=== PATIENT | female | born 1975 | race Caucasian/White ===

== ENCOUNTER 2017-08-30 19:18 | Emergency (ER) | payer OTHER ==
--- NOTE | 2017-08-30 20:54 | RAD ---
Indication: Dizziness. Comparison: No relevant prior exams available on the [facility] [place] for comparison. Technique: Upright AP 2043 hours Report: Clear lungs and pleural spaces. Negative for pneumothorax. The heart, pulmonary vasculature, and mediastinal contours are unremarkable. Unremarkable osseous structures and soft tissue contours. IMPRESSION: No evidence for acute intrathoracic disease.
[2017-08-30 21:04] LABS: Hematocrit 44 % (35-47); Hemoglobin 15.1 g/dl (12.0-16.0); Mean Corpuscular HGB Conc 35 g/dl (31-36); Mean Corpuscular Hemoglobin 31 pg (27-31); Mean Corpuscular Volume 89 fL (80-97); Mean Platelet Volume 9 um3 (7.4-10.4); Red Blood Count 4.89 10^6/ul (4.0-5.4); Red Cell Distribution Width 12 % (10.5-15); White Blood Count 7.9 10^3/ul (3.5-10.8)
[2017-08-30 21:18] LABS: ALT 11 U/L (7-52); AST 12 U/L (13-39); Albumin 4.3 g/dL (3.2-5.2); Alkaline Phosphatase 46 U/L (34-104); Anion Gap 7 mmol/L (2-11); BUN/Creatinine Ratio 18.8 (8-20); Blood Urea Nitrogen 12 mg/dL (6-24); CO2 Carbon Dioxide 24 mmol/L (22-32); Calcium 8.9 mg/dL (8.6-10.3); Chloride 106 mmol/L (101-111); Creatine Kinase 54 U/L (10-223); EGFR African American 130.2 (>60); EGFR Non-African American 101.3 (>60); Globulin 1.8 g/dL (2-4); Glucose 118 mg/dL (70-100); Potassium 3.3 mmol/L (3.5-5.0); Sodium 137 mmol/L (133-145); Total Protein 6.1 g/dL (6.4-8.9)
[2017-08-30 21:21] LABS: Alcohol < 10 mg/dL (<10)
[2017-08-30 21:36] LABS: TSH (Thyroid Stimulating Horm) 1.52 mcIU/mL (0.34-5.60)
[2017-08-30 21:57] LABS: Benzodiazepine Urine Screen None Detected (None Detect)
[2017-08-30 21:58] LABS: Urine Bilirubin Negative (Negative); Urine Glucose Negative (Negative); Urine Nitrite Negative (Negative)
[2017-08-30] MEDS ORDERED: Potassium Chlor TAB* 20 MEQ TAB.ER PO ONE (23:08)
[2017-08-31] MEDS ORDERED: Iohexol 350* (CONTRAST) 500 ML MDV IV ONE (00:26)
--- NOTE | 2017-08-31 01:37 | ED ---
Alice Jacobs Edward, scribed for Radha Garnica MD on 08/30/17 at 2057 . Dizziness - HPI Summary HPI Summary: 41 y/o female presents to the ED c/o sudden onset dizziness described as room spinning that lasted around 30 minutes while bending over her waist earlier today just before 18:00 after "cracking her back", which she does all the time but she has never had this dizziness afterwards. The pt had to lie down on her dining room floor. Pt c/o diaphoresis and weakness in the extremities during the near syncopal episode. Pt is unsure if she lost consciousness. The dizziness was aggravated by standing up. Associated sx: chronic L side neck pain aggravated with turning her head that became worse in the past few days and continues in the ED,worsened in ED by turning her head; nausea that resolved in 1 hr, elevated blood pressure, muscular twitch at the inside of the R knee starting a couple of days ago. Pt feels much better in the ED. Pt c/o [place] for the last 3 days. The [place] is waxing and waning from a 2-3 to a 5-6/10, aggravated with turning the head, located at the back of the base of the skull. Pt is noted HTN in the ED, no prior hx HTN. - History Of Current Complaint Chief Complaint: EDDizziness Stated Complaint: DIZZY/N/WEAKNESS Time Seen by Provider: 08/30/17 19:43 Hx Obtained From: Patient, Family/Breastfeeding Peer Counselor - is with pt in ED Last Known Well Date: 1800 today Onset/Duration: Resolved Timing: Minutes - Lasting 30 minutes Severity Initially: Severe Severity Currently: None Character: Room Spinning, Dizzy Aggravating Factor(s): Supine To Erect Alleviating Factor(s): Lying Down Associated Signs And Symptoms: Positive: Nausea, Diaphoresis, Other: - weakness in extremities, neck pain, [place] - Allergies/Home Medications Allergies/Adverse Reactions: Allergies Allergy/AdvReac Type Severity Reaction Status Date / Time Penicillins Allergy Unknown Verified 08/30/17 19:31 Reaction Details PMH/Surg Hx/FS Hx/Imm Hx 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 Aunt on father 's side - stroke - Social History Occupation: Employed Full-time - [employer] Lives: With Family Alcohol Use: None Hx Substance Use: No Substance Use Type: Reports: None Hx Tobacco Use: No Smoking Status (MU): Never Smoked Tobacco Review of Systems Positive: Skin Diaphoresis Eyes: Negative ENT: Negative Cardiovascular: Other - elevated BP Respiratory: Negative Positive: Nausea Genitourinary: Negative Positive: Myalgia - Neck pain, Other - muscular twitch at the inside of the R knee Skin: Negative Neurological: Other - Dizziness Positive: Headache, Weakness - in extremities Psychological: Normal All Other Systems Reviewed And Are Negative: Yes Physical Exam - Summary Physical Exam Summary: Appearance: Well-appearing, mild pain distress at base of left skull, Well- nourished; Pt turns head and lifts head off pillow during exam and while giving history without worsening dizziness. Left neck pain worse with turning her head. Skin: Warm, color reflects adequate perfusion Head: Normal Head/Face inspection. No sign of trauma. Eyes: Conjunctiva clear PERRL, EOMI, fundi: discs sharp and flat, no hemorrhage noted; no nystagmus ENT: Normal , TM's clear. Pharynx clear. Neck: Supple, no bruits, tender left post neck at base of skull. Respiratory: Lungs clear, Normal breath sounds, no respiratory distress Cardio: RRR, No murmur, pulses normal, brisk capillary refill Abdomen: soft, nontender, soft, no renal bruits, no pulsatile mass Bowel sounds: present Musculoskeletal: Strength Intact/ ROM intact; no edema; no calf tenderness Neuro: Muscle tone normal, facial symmetry, speech normal, A&Ox3, CN II-XII intact, Motor function 5/5, Sensation intact to pain and temperature, Gait WNL. Normal [id number]. Knee and ankle reflexes 2+ symmetric. Psychological: Normal Triage Information Reviewed: Yes Vital Signs On Initial Exam: Initial Vitals Temp Pulse Resp BP Pulse Ox 97.6 F 75 18 153/95 100 08/30/17 19:22 08/30/17 19:22 08/30/17 19:22 08/30/17 19:22 08/30/17 19:22 Vital Signs Reviewed: Yes - Leroy Coma Scale Coma Scale Total: 15 Diagnostics - Vital Signs Vital Signs Temp Pulse Resp BP Pulse Ox 08/30/17 19:22 97.6 F 75 18 153/95 100 - Laboratory Lab Results: Lab Results 08/30/17 08/30/17 08/30/17 Range/Units 20:54 20:54 20:54 WBC 7.9 (3.5-10.8) 10^3/ul RBC 4.89 (4.0-5.4) 10^6/ul Hgb 15.1 (12.0-16.0) g/dl Hct 44 (35-47) % MCV 89 (80-97) fL MCH 31 (27-31) pg MCHC 35 (31-36) g/dl RDW 12 (10.5-15) % Plt Count 176 (150-450) 10^3/ul MPV 9 (7.4-10.4) um3 Neut % (Auto) 75.3 (38-83) % Lymph % (Auto) 17.8 L (25-47) % [place]arrard % (Auto) 5.6 (1-9) % Eos % (Auto) 0.4 (0-6) % Baso % (Auto) 0.9 (0-2) % Absolute Neuts (auto) 6.0 (1.5-7.7) 10^3/ul Absolute Lymphs (auto) 1.4 (1.0-4.8) 10^3/ul Absolute Monos (auto) 0.4 (0-0.8) 10^3/ul Absolute Eos (auto) 0 (0-0.6) 10^3/ul Absolute Basos (auto) 0.1 (0-0.2) 10^3/ul Absolute Nucleated RBC 0.02 10^3/ul Nucleated RBC % 0.3 INR (Anticoag Therapy) (0.89-1.11) Sodium 137 (133-145) mmol/L Potassium 3.3 L (3.5-5.0) mmol/L Chloride 106 (101-111) mmol/L Carbon Dioxide 24 (22-32) mmol/L Anion Gap 7 (2-11) mmol/L BUN 12 (6-24) mg/dL Creatinine 0.64 (0.51-0.95) mg/dL Est GFR ( Amer) 130.2 (>60) Est GFR (Non-Af Amer) 101.3 (>60) BUN/Creatinine Ratio 18.8 (8-20) Glucose 118 H (70-100) mg/dL Lactic Acid (0.5-2.0) mmol/L Calcium 8.9 (8.6-10.3) mg/dL Magnesium 2.0 (1.9-2.7) mg/dL Total Bilirubin 0.60 (0.2-1.0) mg/dL AST 12 L (13-39) U/L ALT 11 (7-52) U/L Alkaline Phosphatase 46 (34-104) U/L Total Creatine Kinase 54 (10-223) U/L Troponin I 0.00 (<0.04) ng/mL B-Natriuretic Peptide 22 ( - 100) pg/mL Total Protein 6.1 L (6.4-8.9) g/dL Albumin 4.3 (3.2-5.2) g/dL Globulin 1.8 L (2-4) g/dL Albumin/Globulin Ratio 2.4 (1-3) TSH 1.52 (0.34-5.60) mcIU/mL Beta HCG, Quant < 0.60 mIU/mL Urine Color Urine Appearance Urine pH (5-9) Ur Specific [place] (1.010-1.030) Urine Protein (Negative) Urine Ketones (Negative) Urine Blood (Negative) Urine Nitrate (Negative) Urine Bilirubin (Negative) Urine Urobilinogen (Negative) Ur Leukocyte Esterase (Negative) Urine Glucose (Negative) Urine Opiates Screen (None Detect) Ur Barbiturates Screen (None Detect) Ur Phencyclidine Scrn (None Detect) Ur Amphetamines Screen (None Detect) U Benzodiazepines Scrn (None Detect) Urine Cocaine Screen (None Detect) U Cannabinoids Screen (None Detect) Serum Alcohol < 10 (<10) mg/dL 08/30/17 08/30/17 08/30/17 Range/Units 20:54 20:54 21:30 WBC (3.5-10.8) 10^3/ul RBC (4.0-5.4) 10^6/ul Hgb (12.0-16.0) g/dl Hct (35-47) % MCV (80-97) fL MCH (27-31) pg MCHC (31-36) g/dl RDW (10.5-15) % Plt Count (150-450) 10^3/ul MPV (7.4-10.4) um3 Neut % (Auto) (38-83) % Lymph % (Auto) (25-47) % [place]arrard % (Auto) (1-9) % Eos % (Auto) (0-6) % Baso % (Auto) (0-2) % Absolute Neuts (auto) (1.5-7.7) 10^3/ul Absolute Lymphs (auto) (1.0-4.8) 10^3/ul Absolute Monos (auto) (0-0.8) 10^3/ul Absolute Eos (auto) (0-0.6) 10^3/ul Absolute Basos (auto) (0-0.2) 10^3/ul Absolute Nucleated RBC 10^3/ul Nucleated RBC % INR (Anticoag Therapy) 0.98 (0.89-1.11) Sodium (133-145) mmol/L Potassium (3.5-5.0) mmol/L Chloride (101-111) mmol/L Carbon Dioxide (22-32) mmol/L Anion Gap (2-11) mmol/L BUN (6-24) mg/dL Creatinine (0.51-0.95) mg/dL Est GFR ( Amer) (>60) Est GFR (Non-Af Amer) (>60) BUN/Creatinine Ratio (8-20) Glucose (70-100) mg/dL Lactic Acid 1.2 (0.5-2.0) mmol/L Calcium (8.6-10.3) mg/dL Magnesium (1.9-2.7) mg/dL Total Bilirubin (0.2-1.0) mg/dL AST (13-39) U/L ALT (7-52) U/L Alkaline Phosphatase (34-104) U/L Total Creatine Kinase (10-223) U/L Troponin I (<0.04) ng/mL B-Natriuretic Peptide ( - 100) pg/mL Total Protein (6.4-8.9) g/dL Albumin (3.2-5.2) g/dL Globulin (2-4) g/dL Albumin/Globulin Ratio (1-3) TSH (0.34-5.60) mcIU/mL Beta HCG, Quant mIU/mL Urine Color Urine Appearance Urine pH (5-9) Ur Specific [place] (1.010-1.030) Urine Protein (Negative) Urine Ketones (Negative) Urine Blood (Negative) Urine Nitrate (Negative) Urine Bilirubin (Negative) Urine Urobilinogen (Negative) Ur Leukocyte Esterase (Negative) Urine Glucose (Negative) Urine Opiates Screen None detected (None Detect) Ur Barbiturates Screen None detected (None Detect) Ur Phencyclidine Scrn None detected (None Detect) Ur Amphetamines Screen None detected (None Detect) U Benzodiazepines Scrn None detected (None Detect) Urine Cocaine Screen None detected (None Detect) U Cannabinoids Screen None detected (None Detect) Serum Alcohol (<10) mg/dL 08/30/17 Range/Units 21:30 WBC (3.5-10.8) 10^3/ul RBC (4.0-5.4) 10^6/ul Hgb (12.0-16.0) g/dl Hct (35-47) % MCV (80-97) fL MCH (27-31) pg MCHC (31-36) g/dl RDW (10.5-15) % Plt Count (150-450) 10^3/ul MPV (7.4-10.4) um3 Neut % (Auto) (38-83) % Lymph % (Auto) (25-47) % [place] % (Auto) (1-9) % Eos % (Auto) (0-6) % Baso % (Auto) (0-2) % Absolute Neuts (auto) (1.5-7.7) 10^3/ul Absolute Lymphs (auto) (1.0-4.8) 10^3/ul Absolute Monos (auto) (0-0.8) 10^3/ul Absolute Eos (auto) (0-0.6) 10^3/ul Absolute Basos (auto) (0-0.2) 10^3/ul Absolute Nucleated RBC 10^3/ul Nucleated RBC % INR (Anticoag Therapy) (0.89-1.11) Sodium (133-145) mmol/L Potassium (3.5-5.0) mmol/L Chloride (101-111) mmol/L Carbon Dioxide (22-32) mmol/L Anion Gap (2-11) mmol/L BUN (6-24) mg/dL Creatinine (0.51-0.95) mg/dL Est GFR ( Amer) (>60) Est GFR (Non-Af Amer) (>60) BUN/Creatinine Ratio (8-20) Glucose (70-100) mg/dL Lactic Acid (0.5-2.0) mmol/L Calcium (8.6-10.3) mg/dL Magnesium (1.9-2.7) mg/dL Total Bilirubin (0.2-1.0) mg/dL AST (13-39) U/L ALT (7-52) U/L Alkaline Phosphatase (34-104) U/L Total Creatine Kinase (10-223) U/L Troponin I (<0.04) ng/mL B-Natriuretic Peptide ( - 100) pg/mL Total Protein (6.4-8.9) g/dL Albumin (3.2-5.2) g/dL Globulin (2-4) g/dL Albumin/Globulin Ratio (1-3) TSH (0.34-5.60) mcIU/mL Beta HCG, Quant mIU/mL Urine Color Straw Urine Appearance Clear Urine pH 9.0 (5-9) Ur Specific [place] 1.005 L (1.010-1.030) Urine Protein Negative (Negative) Urine Ketones Negative (Negative) Urine Blood Negative (Negative) Urine Nitrate Negative (Negative) Urine Bilirubin Negative (Negative) Urine Urobilinogen Negative (Negative) Ur Leukocyte Esterase Negative (Negative) Urine Glucose Negative (Negative) Urine Opiates Screen (None Detect) Ur Barbiturates Screen (None Detect) Ur Phencyclidine Scrn (None Detect) Ur Amphetamines Screen (None Detect) U Benzodiazepines Scrn (None Detect) Urine Cocaine Screen (None Detect) U Cannabinoids Screen (None Detect) Serum Alcohol (<10) mg/dL Result Diagrams: 08/30/17 20:54 08/30/17 20:54 Lab Statement: Any lab studies that have been ordered have been reviewed, and results considered in the medical decision making process. - Radiology CXR Xray Interpretation: No Acute Changes - No evidence for acute intrathoracic disease. Radiology Interpretation Completed By: Radiologist - Additional Comments Diagnostic Additional Comments: EKG - 19:34 - SR @ 70 BPM. Normal AV, IV and QTC. Normal [place]. Flat ST segments in III and aVF. No acute changes. Re-Evaluation - Re-Evaluation First Eval Re-Evaluation Time: 23:30 - awaiting CT brain and CTA head and neck. No change in sxs. BP's still elevated for pt 139/84 Change: Unchanged Second Eval Re-Evaluation Time: 01:30 - BP 159/86, mild [place], dizziness improved. Awaiting CTA head/neck Change: Unchanged Dizzy Course/Dx - Course Course Of Treatment: labs done. K+ 3.3, replaced with [address] brain neg. CXR neg. CTA head/neck- neg Assessment/Plan: 41 y/o female presents to the ED c/o sudden onset dizziness described as room spinning that lasted around 30 minutes while bending over her waist earlier today just before 18:00. The pt had to lie down on her dining room floor. Pt c/o diaphoresis and weakness in the extremities during the near syncopal episode. Pt is unsure if she lost consciousness. The dizziness was aggravated by standing up. Associated sx: chronic L side neck pain aggravated with turning her head that became worse in the past few days, nausea that resolved in 1 hr, elevated blood pressure, muscular twitch at the inside of the R knee starting a couple of days ago. Pt feels much better in the ED. Pt c/o [place] for the last 3 days. The [place] is waxing and waning from a 2-3 to a 5-6/10, aggravated with turning the head, located at the back of the base of the skull. EKG - 19:34 - SR @ 70 BPM. Normal AV, IV and QTC. Normal [place]. Flat ST segments in III and aVF. No acute changes. CXR SHOWS No evidence for acute intrathoracic disease. Pt is not orthostatic. Discussed diff dx including vertebral art dissection, stroke. Pt and understand risks of radiation (Pt states she grew up in [facility] at time of [place] nuclear accident). Pt and agree to CT studies. CT brain is normal. CTA head and neck: neg. Pt will be DC'd home with to f/u with PCP regarding elevated BP's noted in ED, and further evaluation of the dizziness. - Diagnoses Differential Diagnosis/HQI/PQRI: Benign Paroxysmal Positional Vertigo, CVA, Labyrinthitis, Metabolic Abnormality, Other - vertebral dissection Provider Diagnoses: Hypokalemia, Vertigo, Elevated BP without diagnosis of hypertension Discharge - Discharge Plan Condition: Stable Disposition: HOME Prescriptions: Meclizine TAB* [Antivert 12.5 TAB*] 25 mg PO TID #12 tab Patient Education Materials: Vertigo (ED), Hypertension (ED) Referrals: Deon Dove MD [Medical Doctor] - 1 Week Nevaeh Quinn MD [Primary Care Provider] - 2 Days Additional Instructions: Have definite follow up with Dr. Quinn regarding the elevated blood pressures that were measured while you were in the ER. The CT of your brain was negative and the CTA of the head and neck was also negative. Your potassium was slightly low at 3.3 and we gave you one dose of potassium. You were not orthostatic. You may try the meclizine 25mg three times a day as needed, if you want to try a medication for dizziness. Meclizine is also available without a prescription as "Dramamine II". Return to the ER if you have any new or worsening symptoms. The documentation as recorded by the Alice mejia Edward accurately reflects the service I personally performed and the decisions made by me, Radha Garnica MD.
[2017-08-31] MEDS ORDERED: Meclizine TAB* 12.5 MG PO ONE (01:55)
[2017-08-31 02:07] VITALS: BP 142/83
--- NOTE | 2017-08-31 07:53 | RAD ---
HISTORY: Dizziness, headache, neck pain COMPARISONS: None TECHNIQUE: Multiple contiguous axial CT scans were obtained of the head without intravenous contrast. FINDINGS: HEMORRHAGE/INFARCT: There is no hemorrhage or acute infarct. MASSES/SHIFT: There is no mass or shift. EXTRA-AXIAL SPACES: There are no extra-axial fluid collections. SULCI AND VENTRICLES: The sulci and ventricles are normal in size and position for the patient's stated age. CEREBRUM: There are no focal parenchymal abnormalities. BRAINSTEM: There are no focal parenchymal abnormalities. CEREBELLUM: There are no focal parenchymal abnormalities. VESSELS: The vessels are grossly normal. PARANASAL SINUSES: The paranasal sinuses are clear. ORBITS: The orbits are unremarkable. BONES AND SOFT TISSUE: No bone or soft tissue abnormalities are noted. OTHER: None IMPRESSION: NO ACUTE INTRACRANIAL PATHOLOGY.
--- NOTE | 2017-08-31 08:11 | RAD ---
HISTORY: Neck pain, dizziness, question dissection COMPARISONS: None TECHNIQUE: Multiple contiguous axial CT scans were obtained of the head and neck After the administration of nonionic intravenous contrast timed to the systemic arterial phase of contrast enhancement. Coronal and sagittal multiplanar reformations are submitted for review. Multiple 3-D maximum intensity projection reconstructions are also submitted for review. FINDINGS: CTA NECK: AORTIC ARCH: There is a normal three-vessel branching pattern of the aortic arch. There is no ostial or proximal stenosis of the cephalic great vessels. RIGHT VERTEBRAL ARTERY: The right vertebral artery is patent along its course, without stenosis. LEFT VERTEBRAL ARTERY: On axial images 153 through 161 of series 4, there is mild mural irregularity of the proximal V4 segment of the left vertebral artery. On image 154, there is a small focus of contrast enhancement that does not seem to progressed distally. Additionally, there appears to be a hypoenhancing distal V4 segment, distal to the origin of the left posterior inferior cerebellar artery. DOMINANCE: The right vertebral artery is dominant. RIGHT COMMON CAROTID ARTERY: The right common carotid artery is patent. The right carotid bifurcation occurs at C3-C4 RIGHT INTERNAL CAROTID ARTERY: There is no right internal carotid artery stenosis by NASCET criteria. The right internal carotid artery is tortuous. RIGHT EXTERNAL CAROTID ARTERY: The right external carotid artery is unremarkable. LEFT COMMON CAROTID ARTERY: The left common carotid artery is patent. The left carotid bifurcation occurs at C4-C5 LEFT INTERNAL CAROTID ARTERY: There is no left internal carotid artery stenosis by NASCET criteria. LEFT EXTERNAL CAROTID ARTERY: The left external carotid artery is unremarkable. VENOUS CIRCULATION: The venous system is unremarkable. SALIVARY GLANDS: The parotid glands, submandibular glands, sublingual glands are normal. NASAL CAVITY/NASOPHARYNX: The nasal cavity and nasopharynx are normal. ORAL CAVITY/OROPHARYNX: The oral cavity is obscured by streak artifact from dental amalgam. The visualized oral cavity and oropharynx are unremarkable. LARYNGEAL APPARATUS/HYPOPHARYNX: The laryngeal apparatus and hypopharynx are normal. UPPER AIRWAY/UPPER ESOPHAGUS: The visualized upper airway and esophagus are normal. LUNG APICES: The lung apices are clear. THYROID GLAND: The thyroid gland is normal. LYMPH NODES: There is no lymphadenopathy by size criteria. BONES AND SOFT TISSUES: No bone or soft tissue abnormalities are noted. CTA HEAD: INTRACRANIAL CIRCULATION: There is no aneurysm, vascular malformation, occlusion, or stenosis of the visualized intracranial circulation. The anterior communicating artery complex is clear. Bilateral posterior communicating arteries are identified. VENOUS CIRCULATION: The venous system is unremarkable. PERFUSION: There is no obvious parenchymal perfusion deficit. HEMORRHAGE/INFARCT: There is no hemorrhage or acute infarct. MASSES/SHIFT: There is no mass or shift. EXTRA-AXIAL SPACES: There are no extra-axial fluid collections. SULCI AND VENTRICLES: The sulci and ventricles are normal in size and position for the patient's stated age. CEREBRUM: There are no focal parenchymal abnormalities. BRAINSTEM: There are no focal parenchymal abnormalities. CEREBELLUM: There are no focal parenchymal abnormalities. PARANASAL SINUSES: The paranasal sinuses are clear. ORBITS: The orbits are unremarkable. BONES AND SOFT TISSUE: There is straightening of the cervical lordosis. There are mild degenerative changes at C5-C6. OTHER: There is no abnormal enhancement. IMPRESSION: 1. THERE IS MILD MURAL IRREGULARITY OF THE PROXIMAL V4 SEGMENT OF LEFT VERTEBRAL ARTERY WITH HYPOENHANCEMENT OF THE DISTAL V4 SEGMENT. IN THE CORRECT CLINICAL SETTING, THIS MAY REPRESENT A DISSECTION OF THE DISTAL V4 SEGMENT. 2. MR ANGIOGRAPHY OF THE HEAD, INCLUDING AXIAL T1-WEIGHTED IMAGES WITH FAT SATURATION TO INCLUDE THE DISTAL LEFT VERTEBRAL ARTERY MAY BE USEFUL TO FURTHER DEFINE THE NATURE OF THE PATHOLOGY. 3. THE CHANGE FROM THE PRELIMINARY OVERNIGHT INTERPRETATION WAS DISCUSSED WITH DR. WALSH IN THE EMERGENCY DEPARTMENT AT APPROXIMATELY 8:00 AM ON AUGUST 31, 2017 CPT II Codes: 3100F
== END 2017-08-31 02:34 | disposition home or self-care (01) ==
LOC: ED 19:18
DX: R03.0 Elevated blood-pressure reading, without diagnosis of hypertension (principal); R11.0 Nausea; R53.1 Weakness; R51 Headache; E87.6 Hypokalemia; R42 Dizziness and giddiness
CPT/HCPCS: 36415; 70450; 70496; 70498; 71010; 80053; 80307; 80320; 81003; 82550; 83605; 83735; 83880; 84443; 84484; 84702; 85025; 85610; 93005; 99284; A9270-GY; G0480; Q9967

== ENCOUNTER 2017-08-31 08:55 | Emergency (ER) | payer OTHER ==
[~2017-08-31 08:55] MED LIST: Rivaroxaban TAB(*) 15 MG PO SCH
--- NOTE | 2017-08-31 11:17 | RAD ---
HISTORY: Headache COMPARISONS: CTA dated August 31, 2017 TECHNIQUE: 3-D axial [id number] MR angiography was performed of the head to include the eek of [place]. Multiple 3-D maximum intensity projection reconstructions are also submitted for review. Axial T1-weighted images were obtained of the head with fat saturation FINDINGS: RIGHT VERTEBRAL ARTERY: The distal right vertebral artery is unremarkable, without stenosis. LEFT VERTEBRAL ARTERY: There is fusiform luminal narrowing of the V4 segment of the left vertebral artery, originating just distal to the origin of the left posterior inferior cerebellar artery. On axial image 13, and axial image 12, series 4, there is suggestion of high T1 signal material along the narrowed segment of the left vertebral artery, consistent with mural hematoma. There is a small focus of flow related enhancement noted at the V3-V4 junction, best seen on axial image 52. DOMINANCE: The right vertebral artery is dominant. DISTAL RIGHT CERVICAL INTERNAL CAROTID ARTERY: The distal right cervical internal carotid artery is unremarkable. The distal cervical right internal carotid artery is tortuous. DISTAL LEFT CERVICAL INTERNAL CAROTID ARTERY: The distal left cervical internal carotid artery is unremarkable. INTRACRANIAL CIRCULATION: As noted above, there is narrowing of the proximal V4 segment of the left vertebral artery. Also, there is no aneurysm, vascular malformation, occlusion, or stenosis of the visualized intracranial circulation. The anterior communicating artery complex is clear. There is a origin of the right posterior cerebral artery. OTHER FINDINGS: None IMPRESSION: FUSIFORM NARROWING OF THE V4 SEGMENT OF THE LEFT VERTEBRAL ARTERY, DISTAL TO THE LEFT POSTERIOR INFERIOR CEREBELLAR ARTERY, WITH A PROBABLE SMALL PSEUDOANEURYSM OF THE V3-V4 JUNCTION, WITH FINDINGS SUGGESTIVE OF MURAL HEMATOMA, MOST CONSISTENT WITH DISSECTION OF THE LEFT VERTEBRAL ARTERY
--- NOTE | 2017-08-31 17:20 | CONS ---
CC: Dr. Quinn NEUROLOGY CONSULTATION: DATE OF CONSULT: 08/31/17 PRIMARY CARE PHYSICIAN: Dr. Quinn. REQUESTING PHYSICIAN: Dr. Lyons in the emergency department. REASON FOR CONSULT: Vertebral dissection. HISTORY OF PRESENT ILLNESS: Milagros Segovia is a 42-year-old woman with a history of occasional neck pain and headaches as well as mild depression and what she describes as mild hypermobility since she went through her second 5 years ago, who presented to the emergency department last night with acute onset of vertigo. She was bending over at the waist, stretching with her hands locked behind her back, which is a stretch she commonly does when she has neck pain and headache, which she had been experiencing for approximately 3 days. With this maneuver, she had the acute onset of vertigo as well as nausea and diaphoresis. She lied on the floor and she felt diffusely weak with tingling of her extremities as well. She did not vomit, but thought that she may have if she had tried to sit up. She felt presyncopal. She instructed her children to get her phone and she asked her to come home. The symptoms resolved within approximately 30 minutes and she presented to the emergency department for evaluation. She was found to be mildly hypertensive in the emergency department with no prior history of hypertension. 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 I was contacted by Dr. Lyons after Dr. Martinez, who read the CTA from last night, recommended further evaluation with MRA of the head. The patient was no longer experiencing vertigo , but she did have some residual neck pain as well as headache. The MRA of the head confirmed the presence of a dissection in the V4 segment with suggestion of a mural thrombus associated. I therefore came down to evaluate the patient. The patient denies any diplopia, dysarthria, dysphagia. She feels that her balance is intact today and she describes no extremity weakness or numbness. She has had no recurrence of her vertigo. She still does have the neck pain on the left as well as some stiffness and some mild headache as well. She had been recently taking some naproxen for this neck pain and headache. She denies having any chiropractic manipulation or other neck traumas such as a motor vehicle accident recently. She knows of no family history of clotting disorders or other folks in the family who have had dissections. She describes herself as always being "double jointed" as a younger person but really developed increased hypermobility problems after her , for which she has been treated with PT. PAST MEDICAL HISTORY: 1. Occasional headaches and musculoskeletal pain. 2. Depression. HOME MEDICATIONS: 1. Omeprazole. 2. Bupropion 150 mg daily. 3. Supplements including omega-3. ALLERGIES: PENICILLIN. FAMILY HISTORY: There is a history of stroke in her grandmother, but she was elderly at that time. Her mother was an alcoholic and her father was as well. She indicates that her father has had some personality and memory changes and she wonders if he is having TIAs. He is in his late 70s. SOCIAL HISTORY: She drinks alcohol occasionally. There is no tobacco use. She works for [employer] and was scheduled to go to a conference in [place] tomorrow. She has 2 sons, ages 5 and 7. Her brother is an emergency physician whom I spoke with during my evaluation. REVIEW OF SYSTEMS: She denies any recent systemic illness. Otherwise, as per the HPI. PHYSICAL EXAM: Vital Signs: Temperature 98.4, blood pressure 147/95, heart rate 76, oxygen saturation is 99% on room air. On general examination, she is a very pleasant woman, in no acute distress. Her heart is in a regular rate and rhythm with no murmurs, rubs, or gallops. There are no carotid bruits and no cranial bruits auscultated. Lungs were clear to auscultation bilaterally. There is no joint erythema or swelling. Her skin is warm, dry, and intact. On neurologic examination, she is fully awake, alert, and oriented. Speech is fluent without dysarthria or aphasia. On cranial nerve examination, pupils were equal, round, and reactive from 4 to 2 mm bilaterally. Funduscopic exam is benign. Versions are full without nystagmus or diplopia. Mckenzie are full to confrontation with no extinction to double simultaneous stimulation. Facial sensation and musculature is full and symmetric. Hearing is intact to finger rub. The palate elevates symmetrically and the tongue is midline. Shoulder shrug is full and symmetric. On motor examination, she has got normal bulk and tone in the upper and lower extremities. Strength is full proximally and distally with no pronator drift. Sensation is intact to pinprick, light touch as well as temperature and vibration in the upper and lower extremities. Reflexes are 2+ throughout with downgoing toes. Csuqtz-cf-lkyo is intact. On pthd-bt-atea testing, she had very mild mostly subjective difficulty with left jfei-pz-dvip, which improved as she repeated the maneuver 3 or 4 times. Romberg is negative. She is able to heel, toe, and tandem walk, and her casual gait is narrow based and stable. DIAGNOSTIC STUDIES/LAB DATA: Reviewed from last night includes a CBC, which is largely unremarkable as well as a CMP, which was notable only for a slightly low potassium of 3.3, a nonfasting glucose of 118, and slightly low protein of 6.1. TSH was 1.52. Toxicology screen was negative. Urinalysis was negative. Coagulation studies were normal. I reviewed the head CT angiogram as well as the head MRA, which were performed last night and this morning respectively. These show irregularity of the V4 segment of the left vertebral artery and on the MRA, there is suggestion of a mural thrombus associated. The dissection begins just distal to the take off the left PICA. IMPRESSION AND PLAN: Milagros Segovia is a 42-year-old woman, who had the acute onset of vertigo as well as nausea and diaphoresis in the setting of stretching her back last evening, lasting 30 minutes. She has been found to have vertebral dissection on angiogram, which appears to have an associated mural thrombus. Her neuro exam is overall unremarkable aside for some possible mild difficulty with avfo-jh-xawe on the left. I discussed with the patient given the presence of mural thrombus, I recommend full-dose anticoagulation at this time and we will send her from the emergency department with a prescription for Xarelto. The plan is to anticoagulate for 3 months and then reevaluate with MRA of the head at that time. I would also like to obtain MRI scan of her brain , which can be done as an outpatient in the next day or two. The purpose is to evaluate for any signs of stroke, which may have occurred in the setting of this dissection. I will arrange for this. She was advised to avoid any extreme ranges of motion of her neck including avoiding hyperextension or cracking her neck in anyway. She was supposed to travel by plane to [place] tomorrow for a conference and I advised that she should stay home at this time given this new diagnosis and newly starting this medication. She was advised to avoid lifting weights or lifting her children for the next 4 weeks or so. She is able to engage in some light exercise including some light jogging. For her neck pain and stiffness, she should not take naproxen or other NSAIDs right now with her anticoagulation, so I recommended Tylenol and she could try a small dose of a muscle relaxant such as tizanidine or Flexeril. She was warned that this could cause sedation and she should try this at a time when she does plan to drive or need to take care of her children. She should be given the contact information for my office and I will arrange for a followup appointment with her. I will also arrange for the repeat MRA in 3 months. She was advised of symptoms which should prompt her to return to the emergency department including any return of sudden onset vertigo or any new-onset diplopia, dysarthria, or extremity weakness or numbness. Otherwise, I think she can be started on anticoagulation as an outpatient and does not require admission to the hospital today. Thank you for this consultation. [id number]/[facility] #: [id number] LAUREL
--- NOTE | 2017-08-31 18:38 | ED ---
Gina Jacobs SooYoung, scribed for Jason Lyons MD on 08/31/17 at 0941 . Dizziness - HPI Summary HPI Summary: A 42 y/o F presents to ED for additional evaluation after being seen in ED yesterday. She was called this AM and told to return. Pt states that she had a low grade, occipital [place] at base of her head yesterday, which is not abnormal for her, she has a PMHx: [place]. She stretched and her spine cracked when she had sudden-onset dizziness. Described as room-spinning. She sat back in her chair, but the dizziness continued, and she fell onto the floor. During this episode, the associated sx included extremity numbness/tingling, nausea, diaphoresis. The worst of the sx lasted approx. 30 minutes. At bedside, she states feeling "vastly better" than she did last night. PMHx: [place], back tension, mild hypermobility syndrome. No PMHx vertigo. - History Of Current Complaint Chief Complaint: EDGeneral Stated Complaint: REVISIT Time Seen by Provider: 08/31/17 09:31 Hx Obtained From: Patient, Family/Mechanic Assistant Onset/Duration: Resolved Timing: Minutes - 30 mins Severity Currently: Severe Character: Dizzy Associated Signs And Symptoms: Positive: Nausea, Diaphoresis, Other: - pos: extremity numbness/tingling - Allergies/Home Medications Allergies/Adverse Reactions: Allergies Allergy/AdvReac Type Severity Reaction Status Date / Time Penicillins Allergy Unknown Verified 08/30/17 19:31 Reaction Details Home Medications: Home Medications Bupropion XL* [Wellbutrin XL *] 150 mg PO DAILY 08/31/17 [History Confirmed 09/07] Omeprazole CAP* [Prilosec CAP* 20 MG] 20 mg PO DAILY 08/31/17 [History Confirmed 08/31/17] PMH/Surg Hx/FS Hx/Imm Hx Previously Healthy: No Endocrine/Hematology History: Denies: Hx Diabetes Cardiovascular History: Reports: Hx Hypertension - during , Other Cardiovascular Problems/Disorders - Heart murmur as a child History: Denies: Hx Dialysis, Hx Renal Disease Neurological History: Reports: Hx Headaches - Surgical History Surgery Procedure, Year, and Place: , tonsillectomy, foot surgery Infectious Disease History: No Infectious Disease History: Denies: Traveled Outside the [place] in Last 30 Days - Family History Known Family History: Positive: Other - Mother - EtOH abuse, HTN. Aunt on father 's side - stroke - Social History Occupation: Employed Full-time Lives: With Family Alcohol Use: Weekly Hx Substance Use: No Substance Use Type: Reports: None Hx Tobacco Use: No Smoking Status (MU): Never Smoked Tobacco Review of Systems Positive: Skin Diaphoresis Positive: Nausea Neurological: Other - pos: dizziness Positive: Headache, Numbness - extremities All Other Systems Reviewed And Are Negative: Yes Physical Exam - Summary Physical Exam Summary: VITAL SIGNS: Reviewed. GENERAL: Patient is a well-developed and nourished FEMALE who is lying comfortable in the stretcher. Patient is not in any acute respiratory distress. HEAD AND FACE: No signs of trauma. No ecchymosis, hematomas or skull depressions. No sinus tenderness. EYES: PERRLA, EOMI x 2, No injected conjunctiva, no nystagmus. No photophobia. EARS: Hearing grossly intact. Ear canals and tympanic membranes are within normal limits. MOUTH: Oropharynx within normal limits. NECK: Supple, trachea is midline, no adenopathy, no JVD, no carotid bruit, no c- spine tenderness, neck with full ROM. No meningeal signs, no Kernig's or Brudzinskis signs. CHEST: Symmetric, no tenderness at palpation LUNGS: Clear to auscultation bilaterally. No wheezing or crackles. CVS: Regular rate and rhythm, S1 and S2 present, no murmurs or gallops appreciated. ABDOMEN: Soft, non-tender. No signs of distention. No rebound, no guarding, and no masses palpated. Bowel sounds are normal. EXTREMITIES: FROM in all major joints, no edema, no cyanosis or clubbing. NEURO: Alert and oriented x 3. No acute neurological deficits. Speech is normal and follows commands. SKIN: Dry and warm GCS: 15 Triage Information Reviewed: Yes Vital Signs On Initial Exam: Initial Vitals Temp Pulse Resp BP Pulse Ox 98.4 F 83 20 151/87 100 08/31/17 08:59 08/31/17 08:59 08/31/17 08:59 08/31/17 08:59 08/31/17 08:59 Vital Signs Reviewed: Yes - [place] Coma Scale Coma Scale Total: 15 Diagnostics - Vital Signs Vital Signs Temp Pulse Resp BP Pulse Ox 08/31/17 09:24 82 13 98 08/31/17 09:23 130/87 08/31/17 08:59 98.4 F 83 20 151/87 100 - Laboratory Lab Statement: Any lab studies that have been ordered have been reviewed, and results considered in the medical decision making process. - Additional Comments Diagnostic Additional Comments: HEAD MRA as read by radiologist: IMPRESSION: FUSIFORM NARROWING OF THE V4 SEGMENT OF THE LEFT VERTEBRAL ARTERY, DISTAL TO THE LEFT POSTERIOR INFERIOR CEREBELLAR ARTERY, WITH A PROBABLE SMALL PSEUDOANEURYSM OF THE V3-V4 JUNCTION, WITH FINDINGS SUGGESTIVE OF MURAL HEMATOMA , MOST CONSISTENT WITH DISSECTION OF THE LEFT VERTEBRAL ARTERY. ED physician has reviewed this radiology report and agrees Re-Evaluation - Re-Evaluation 1 Re-Evaluation Time: 11:06 Change: Unchanged Comment: Discussing neuro consult with pt. Dizzy Course/Dx - Course Course Of Treatment: A 42 y/o F presents to ED for additional evaluation after being seen in ED yesterday. She was called this AM and told to return. Pt states that she had a low grade, occipital [place] at base of her head yesterday, which is not abnormal for her, she has a PMHx: [place]. She stretched and her spine cracked when she had sudden-onset dizziness. Described as room-spinning. She sat back in her chair, but the dizziness continued, and she fell onto the floor. During this episode, the associated sx included extremity numbness/ tingling, nausea, diaphoresis. The worst of the sx lasted approx. 30 minutes. At bedside, she states feeling "vastly better" than she did last night. PMHx: [place] , back tension, mild hypermobility syndrome. No PMHx vertigo. Head MRA shows "FUSIFORM NARROWING OF THE V4 SEGMENT OF THE LEFT VERTEBRAL ARTERY, DISTAL TO THE LEFT POSTERIOR INFERIOR CEREBELLAR ARTERY, WITH A PROBABLE SMALL PSEUDOANEURYSM OF THE V3-V4 JUNCTION, WITH FINDINGS SUGGESTIVE OF MURAL HEMATOMA , MOST CONSISTENT WITH DISSECTION OF THE LEFT VERTEBRAL ARTERY.". This pt was seen last night by Dr. Garnica. Pt came in c/o neck and head pain. CTA was read as negative. However, after review by Dr. Martinez, he thought there might be dissection in L vertebral artery. Pt was called back in to ED, she states her sx have improved. We ordered a Head MRA and discussed case with Dr. Tovar, neuro. Dr Tovar assesed pt in ED and the MRA results, and concluded that the pt has a small dissection. Therefore, pt will be d/c home with Trisha. With f/u tomorrow with Dr. Tovar for MRI. Pt is hemodynamically stable, A&Ox3, and has no symptoms. Ambulated out of ED. - Diagnoses Differential Diagnosis/HQI/PQRI: Anxiety, CVA Provider Diagnoses: Vertebral artery dissection - Provider Notifications Discussed Care Of Patient With: Shani Tovar - neuro Time Discussed With Above Provider: 09:46 Instructed by Provider To: Other - Recommends MRI without contrast Discharge - Discharge Plan Condition: Stable Disposition: HOME Prescriptions: Cyclobenzaprine TAB* [Flexeril 10 MG TAB*] 10 mg PO TID PRN #12 tab PRN Reason: Pain Rivaroxaban [Xarelto Starter Pack 15 & 20 mg] 1 tab PO SEE INSTRUCTIONS #1 pkt Patient Education Materials: Cyclobenzaprine (By mouth), Rivaroxaban (By mouth) , Neck Pain (ED) Forms: *Gen. Provider Communication Referrals: Nevaeh Quinn MD [Primary Care Provider] - 3 Days Shani Tovar MD [Medical Doctor] - Additional Instructions: Take Xarelto and Flexeril as prescribed. Follow up with Dr. Tovar for outpatient MRI to evaluate for possible stroke. Follow up with Dr. Quinn. Stop taking Naproxen. No neck hyperextension. Apply heat as necessary. No air travel until cleared by doctor. No lifting over your head until cleared by doctor. The documentation as recorded by the Gina mejia SooYoung accurately reflects the service I personally performed and the decisions made by me, Jason Lyons MD.
[2017-08-31 19:32] VITALS: BP 144/91
== END 2017-08-31 13:52 | disposition home or self-care (01) ==
LOC: ED 08:55
DX: I77.74 Dissection of vertebral artery (principal); R11.0 Nausea; R51 Headache
CPT/HCPCS: 70544; 99283

== ENCOUNTER → 2017-09-17 13:53 | Emergency (ER) | payer OTHER ==
[~2017-09-17 13:53] MED LIST changes: +Gadobenate* (CONTRAST) 529 MG/ML 10 ML SDV IV ONE; -Rivaroxaban TAB(*) 15 MG PO SCH
[2017-09-17 14:38] LABS: Hematocrit 49 % (35-47); Hemoglobin 16.6 g/dl (12.0-16.0); Mean Corpuscular HGB Conc 34 g/dl (31-36); Mean Corpuscular Hemoglobin 31 pg (27-31); Mean Corpuscular Volume 91 fL (80-97); Mean Platelet Volume 10 um3 (7.4-10.4); Red Blood Count 5.39 10^6/ul (4.0-5.4); Red Cell Distribution Width 13 % (10.5-15); White Blood Count 7.5 10^3/ul (3.5-10.8)
[2017-09-17 14:54] LABS: BUN/Creatinine Ratio 21.4 (8-20); C Reactive Protein 1.05 mg/L (< 5.00); Calcium 9.8 mg/dL (8.6-10.3); EGFR African American 116.9 (>60); EGFR Non-African American 90.9 (>60); Globulin 2.5 g/dL (2-4); Potassium 3.7 mmol/L (3.5-5.0); Total Bilirubin 0.8 mg/dL (0.2-1.0); Total Protein 7.5 g/dL (6.4-8.9)
--- NOTE | 2017-09-17 15:51 | RAD ---
HISTORY: Vertebral artery dissection, new onset nausea and dizziness COMPARISONS: August 31, 2017 TECHNIQUE: 3-D axial [id number] MR angiography was performed of the head to include the bill moore's slough of [place]. Multiple 3-D maximum intensity projection reconstructions are also submitted for review. FINDINGS: RIGHT VERTEBRAL ARTERY: The distal right vertebral artery is unremarkable, without stenosis. LEFT VERTEBRAL ARTERY: Again noted is irregular narrowing of the distal V4 segment of the left vertebral artery with a small pseudoaneurysm at the V3-V4 junction. There is stable from the previous examination. DOMINANCE: The right vertebral artery is dominant. DISTAL RIGHT CERVICAL INTERNAL CAROTID ARTERY: The distal right cervical internal carotid artery is unremarkable. DISTAL LEFT CERVICAL INTERNAL CAROTID ARTERY: The distal left cervical internal carotid artery is unremarkable. INTRACRANIAL CIRCULATION: As noted above, there is fusiform irregularity of the distal left vertebral artery with a probable pseudoaneurysm of the V3-V4 junction. Elsewhere, there is no aneurysm, vascular malformation, occlusion, or stenosis of the visualized intracranial circulation. The anterior communicating artery complex is clear. There is a origin of the right posterior cerebral artery. OTHER FINDINGS: None IMPRESSION: AGAIN NOTED IS FUSIFORM NARROWING WITH MURAL IRREGULARITY OF THE DISTAL V4 SEGMENT OF THE LEFT VERTEBRAL ARTERY WITH A SMALL PSEUDOANEURYSM AT THE V3-V4 JUNCTION, CONSISTENT WITH THE HISTORY OF DISSECTION AND STABLE FROM AUGUST 31, 2017
--- NOTE | 2017-09-17 15:52 | RAD ---
HISTORY: History of dissection, acute onset nausea and dizziness COMPARISONS: September 11, 2017 TECHNIQUE: The following sequences were obtained of the head: Sagittal T1-weighted images, axial T2-weighted images, axial FLAIR images, axial susceptibility weighted images, axial T1-weighted images. Additionally, axial diffusion-weighted images were obtained with calculated apparent diffusion coefficients. FINDINGS: HEMORRHAGE/INFARCT: There is no hemorrhage or acute infarct. MASSES/SHIFT: There is no mass or shift. EXTRA-AXIAL SPACES/MENINGES: There are no extra-axial fluid collections. SULCI AND VENTRICLES: The sulci and ventricles are normal in size and position for the patient's stated age. CEREBRUM: There are no focal parenchymal abnormalities. BRAINSTEM: There are no focal parenchymal abnormalities. CEREBELLUM: There are no focal parenchymal abnormalities. The cerebellar tonsils are normal in size and position. SELLA: The sella is normal. PINEAL: The pineal region is clear. CP ANGLE/TEMPORAL BONES: The labyrinthine structures are grossly normal. VESSELS: Normal flow-voids are noted within the visualized vertebral vasculature. DIFFUSION ABNORMALITIES: There are no diffusion abnormalities. PARANASAL SINUSES/MASTOIDS: The paranasal sinuses are clear. ORBITS: The orbits are unremarkable. BONES AND SOFT TISSUE: No bone or soft tissue abnormalities are noted. OTHER: None IMPRESSION: NORMAL BRAIN. NO RESTRICTED DIFFUSION TO SUGGEST ACUTE INFARCT.
--- NOTE | 2017-09-17 15:55 | RAD ---
HISTORY: History of dissection, acute onset of nausea and dizziness COMPARISONS: CTA dated August 31, 2017 TECHNIQUE: The following sequences were obtained of the neck after localizing images: Stacked axial 2-D [id number] MR angiography of the neck; 3-D axial [id number]-[id number]-[id number] MR angiography of the carotid bifurcations. Additionally 3-D multiphase contrast-enhanced MR angiography of the neck was performed after the administration of a gadolinium-based intravenous contrast agent. . Multiple 3-D maximum intensity projection reconstructions are submitted for review. FINDINGS: AORTA: The aortic arch is not well visualized secondary to technique and motion artifact. There is no obvious ostial or proximal stenosis of the cephalic great vessels. RIGHT VERTEBRAL ARTERY: The right vertebral artery is patent and without stenosis. LEFT VERTEBRAL ARTERY: Again noted is fusiform narrowing with irregularity of the distal V4 segment of the left vertebral artery, distal to the origin of PICA. Again noted is a focal outpouching of flow-related and contrast enhancement consistent with small pseudoaneurysm of the V3-V4 junction. This is stable from the previous CTA examination. DOMINANCE: The right vertebral artery is dominant. RIGHT COMMON CAROTID ARTERY: The right common carotid artery is patent. RIGHT INTERNAL CAROTID ARTERY: There is no right internal carotid artery stenosis by NASCET criteria. The distal right internal carotid artery is tortuous. LEFT COMMON CAROTID ARTERY: The left common carotid artery is patent. LEFT INTERNAL CAROTID ARTERY: There is no left internal carotid artery stenosis by NASCET criteria. ADDITIONAL FINDINGS: The visualized intracranial circulation is unremarkable. IMPRESSION: 1. AGAIN NOTED IS NARROWING WITH IRREGULARITY OF THE DISTAL V4 SEGMENT OF THE LEFT VERTEBRAL ARTERY WITH A SMALL SEGMENT ANEURYSM OF THE V3-V4 JUNCTION, CONSISTENT WITH THE HISTORY OF DISSECTION. THIS IS STABLE FROM THE PREVIOUS CTA EXAMINATION. 2. THERE IS NO INTERNAL CAROTID ARTERY STENOSIS BY NASCET CRITERIA. CPT II Codes: 3100F
[2017-09-17 19:09] VITALS: BP 146/96
--- NOTE | 2017-09-18 18:18 | ED ---
Elizabeth Jacobs Thomas, scribed for Jason Lyons MD on 09/17/17 at 1502 . Neurological HPI - HPI Summary HPI Summary: The patient is a 42 y/o F c/o an episode of sudden-onset dizziness and nausea that began yesterday at 22:30 and spontaneously resolved after 30 minutes. 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 She is on Xarelto. In the ED, she has no complaints. Since her dissection a month ago, she has been easily fatigued. She denies any residual neurological complaints. She is referred to the ED from her neurologist Dr. Fleming. - History of Current Complaint Chief Complaint: EDGeneral Stated Complaint: STROKE LIKE SYMPTOMS/SENT FROM Time Seen by Provider: 09/17/17 13:57 Hx Obtained From: Patient Onset/Duration: Sudden Onset, Started hours ago - onset of symptoms last night at 22:30, Resolved Pain Intensity: 0 Pain Scale Used: 0-10 Numeric Aggravating: Nothing Alleviating: Spontanious Resolution Associated Signs and Symptoms: Positive: Dizziness - Allergy/Home Medications Allergies/Adverse Reactions: Allergies Allergy/AdvReac Type Severity Reaction Status Date / Time Penicillins Allergy Unknown Verified 08/30/17 19:31 Reaction Details PMH/Surg Hx/FS Hx/Imm Hx Previously Healthy: No Endocrine/Hematology History: Denies: Hx Diabetes Cardiovascular History: Reports: Hx Hypertension - during , Other Cardiovascular Problems/Disorders - Heart murmur as a child Denies: Hx Pacemaker/ICD History: Denies: Hx Dialysis, Hx Renal Disease Sensory History: Denies: Hx Hearing Aid Neurological History: Reports: Hx Headaches, Other Neuro Impairments/Disorders - Hx vertebral artery dissection Psychiatric History: Denies: Hx Panic Disorder - Surgical History Surgery Procedure, Year, and Place: , tonsillectomy, foot surgery, episiotomy, laproscopy for endometriosis Infectious Disease History: No Infectious Disease History: Denies: Traveled Outside the [place] in Last 30 Days - Family History Known Family History: Positive: Other - Mother - EtOH abuse, HTN. Aunt on father 's side - stroke - Social History Alcohol Use: Weekly Hx Substance Use: No Substance Use Type: Reports: None Hx Tobacco Use: No Smoking Status (MU): Never Smoked Tobacco Review of Systems Positive: Fatigue - easily fatigued s/o vertebral artery dissection Positive: Nausea Neurological: Other - Dizziness All Other Systems Reviewed And Are Negative: Yes Physical Exam - Summary Physical Exam Summary: VITAL SIGNS: Reviewed. GENERAL: Patient is a well-developed and nourished female who is lying comfortable in the stretcher. Patient is not in any acute respiratory distress. HEAD AND FACE: No signs of trauma. No ecchymosis, hematomas or skull depressions. No sinus tenderness. EYES: PERRLA, EOMI x 2, No injected conjunctiva, no nystagmus. No photophobia. EARS: Hearing grossly intact. Ear canals and tympanic membranes are within normal limits. MOUTH: Oropharynx within normal limits. NECK: Supple, trachea is midline, no adenopathy, no JVD, no carotid bruit, no c- spine tenderness, neck with full ROM. No meningeal signs, no Kernig's or brudzinskis signs. CHEST: Symmetric, no tenderness at palpation LUNGS: Clear to auscultation bilaterally. No wheezing or crackles. CVS: Regular rate and rhythm, S1 and S2 present, no murmurs or gallops appreciated. ABDOMEN: Soft, non-tender. No signs of distention. No rebound no guarding, and no masses palpated. Bowel sounds are normal. EXTREMITIES: FROM in all major joints, no edema, no cyanosis or clubbing. NEURO: Alert and oriented x 3. No acute neurological deficits. Speech is normal and follows commands. SKIN: Dry and warm GCS: 15 Triage Information Reviewed: Yes Vital Signs On Initial Exam: Initial Vitals Temp Pulse Resp BP Pulse Ox 98.9 F 84 20 150/92 100 09/17/17 13:58 09/17/17 13:58 09/17/17 13:58 09/17/17 13:58 09/17/17 13:58 Vital Signs Reviewed: Yes Diagnostics - Vital Signs Vital Signs Temp Pulse Resp BP Pulse Ox 09/17/17 13:58 98.9 F 84 20 150/92 100 - Laboratory Lab Results: Lab Results 09/17/17 09/17/17 Range/Units 14:27 14:27 WBC 7.5 (3.5-10.8) 10^3/ul RBC 5.39 (4.0-5.4) 10^6/ul Hgb 16.6 H (12.0-16.0) g/dl Hct 49 H (35-47) % MCV 91 (80-97) fL MCH 31 (27-31) pg MCHC 34 (31-36) g/dl RDW 13 (10.5-15) % Plt Count 192 (150-450) 10^3/ul MPV 10 (7.4-10.4) um3 Neut % (Auto) 65.4 (38-83) % Lymph % (Auto) 25.5 (25-47) % [place] % (Auto) 6.5 (1-9) % Eos % (Auto) 1.2 (0-6) % Baso % (Auto) 1.4 (0-2) % Absolute Neuts (auto) 4.9 (1.5-7.7) 10^3/ul Absolute Lymphs (auto) 1.9 (1.0-4.8) 10^3/ul Absolute Monos (auto) 0.5 (0-0.8) 10^3/ul Absolute Eos (auto) 0.1 (0-0.6) 10^3/ul Absolute Basos (auto) 0.1 (0-0.2) 10^3/ul Absolute Nucleated RBC 0.01 10^3/ul Nucleated RBC % 0.1 Sodium 137 (133-145) mmol/L Potassium 3.7 (3.5-5.0) mmol/L Chloride 104 (101-111) mmol/L Carbon Dioxide 28 (22-32) mmol/L Anion Gap 5 (2-11) mmol/L BUN 15 (6-24) mg/dL Creatinine 0.70 (0.51-0.95) mg/dL Est GFR ( Amer) 116.9 (>60) Est GFR (Non-Af Amer) 90.9 (>60) BUN/Creatinine Ratio 21.4 H (8-20) Glucose 89 (70-100) mg/dL Calcium 9.8 (8.6-10.3) mg/dL Total Bilirubin 0.80 (0.2-1.0) mg/dL AST 13 (13-39) U/L ALT 12 (7-52) U/L Alkaline Phosphatase 53 (34-104) U/L C-Reactive Protein 1.05 (< 5.00) mg/L Total Protein 7.5 (6.4-8.9) g/dL Albumin 5.0 (3.2-5.2) g/dL Globulin 2.5 (2-4) g/dL Albumin/Globulin Ratio 2.0 (1-3) Result Diagrams: 09/17/17 14:27 09/17/17 14:27 Lab Statement: Any lab studies that have been ordered have been reviewed, and results considered in the medical decision making process. - EKG 16:41 Cardiac Rate: NL - 74 BPM EKG Rhythm: Sinus Rhythm EKG Interpretation: No ST elevations. - Additional Comments Diagnostic Additional Comments: Neck MRA. Interpreted by radiologist. Impression: 1. AGAIN NOTED IS NARROWING WITH IRREGULARITY OF THE DISTAL V4 SEGMENT OF THE LEFT VERTEBRAL ARTERY WITH A SMALL SEGMENT ANEURYSM OF THE V3-V4 JUNCTION, CONSISTENT WITH THEHISTORY OF DISSECTION. THIS IS STABLE FROM THE PREVIOUS CTA EXAMINATION. 2. THERE IS NO INTERNAL CAROTID ARTERY STENOSIS BY NASCET CRITERIA. ED Physician has reviewed this report and agrees. Head MRA. Interpreted by radiologist. Impression: AGAIN NOTED IS FUSIFORM NARROWING WITH MURAL IRREGULARITY OF THE DISTAL V4 SEGMENT OF THE LEFT VERTEBRAL ARTERY WITH A SMALL PSEUDOANEURYSM AT THE V3-V4 JUNCTION, CONSISTENT WITH THE HISTORY OF DISSECTION AND STABLE FROM AUGUST 31, 2017. ED Physician has reviewed this report and agrees. MRI Brain. Interpreted by radiologist. Impression: NORMAL BRAIN. NO RESTRICTED DIFFUSION TO SUGGEST ACUTE INFARCT. ED Physician has reviewed this report and agrees. Course/Dx - Course Assessment/Plan: The patient is a 42 y/o F c/o an episode of sudden-onset dizziness and nausea that began yesterday at 22:30 and spontaneously resolved after 30 minutes. 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 She is on Xarelto. In the ED, she has no complaints. Since her dissection a month ago, she has been easily fatigued. She denies any residual neurological complaints. She is referred to the ED from her neurologist Dr. Fleming. The patient was referred to the ED from her neurologist Dr. Fleming in order to get an Neck MRA, Head MRA, and MRI Brain. Neck MRA shows 1. AGAIN NOTED IS NARROWING WITH IRREGULARITY OF THE DISTAL V4 SEGMENT OF THE LEFT VERTEBRAL ARTERY WITH A SMALL SEGMENT ANEURYSM OF THE V3-V4 JUNCTION, CONSISTENT WITH THE HISTORY OF DISSECTION. THIS IS STABLE FROM THE PREVIOUS CTA EXAMINATION. 2. THERE IS NO INTERNAL CAROTID ARTERY STENOSIS BY NASCET CRITERIA. Head MRA shows AGAIN NOTED IS FUSIFORM NARROWING WITH MURAL IRREGULARITY OF THE DISTAL V4 SEGMENT OF THE. LEFT VERTEBRAL ARTERY WITH A SMALL PSEUDOANEURYSM AT THE V3-V4 JUNCTION, CONSISTENT WITH. THE HISTORY OF DISSECTION AND STABLE FROM AUGUST 31, 2017. MRI Brain shows NORMAL BRAIN. NO RESTRICTED DIFFUSION TO SUGGEST ACUTE INFARCT. Test results are without significant abnormalities. After review of imaging, Dr. Fleming recommends the patient be discharged home with follow up at his office. The patient is hemodynamically stable and alert and oriented x3. - Differential Dx Differential Diagnoses Neuro: Positive: Cerebrovascular Accident, Seizure Disorder, Transient Ischemic Attack - Diagnoses Provider Diagnoses: Dizziness, Nausea - Physician Notifications Discussed Care Of Patient With: Kelby Fleming Time Discussed With Above Provider: 15:00 Instructed by Provider To: Other - After review of imaging, Dr. Fleming recommends the patient be discharged home with follow up at his office. I consulted with Dr. Fleming, neurologist, who made imaging recommendations. Discharge - Discharge Plan Condition: Stable Disposition: HOME Patient Education Materials: Dizziness (ED), Acute Nausea and Vomiting (ED) Referrals: Nevaeh Quinn MD [Primary Care Provider] - 3 Days Additional Instructions: Follow up with your primary care provider in 3 days. Return to the emergency department for any new or worsening symptoms. The documentation as recorded by the Elizabeth mejia Thomas accurately reflects the service I personally performed and the decisions made by me, Jason Lyons MD.
== END | disposition home or self-care (01) ==
LOC: ED 13:53
DX: R42 Dizziness and giddiness (principal); R53.83 Other fatigue; R11.0 Nausea
CPT/HCPCS: 36415; 70544; 70549; 70551; 80053; 85025; 86140; 93005; 99283; A9577

== ENCOUNTER 2018-12-28 08:31 | Emergency (ER) | payer OTHER ==
[2018-12-28 09:10] LABS: ABS Basophils 0 10^3/ul (0-0.2); ABS Eosinophils 0.1 10^3/ul (0-0.6); ABS Lymphocytes 1.7 10^3/ul (1.0-4.8); ABS Monocytes 0.4 10^3/ul (0-0.8); ABS Neutrophils 3.6 10^3/ul (1.5-7.7); ABS Nucleated RBC 0 10^3/ul; Eosinophil % 0.9 %; Hematocrit 46 % (35-47); Hemoglobin 15.7 g/dl (12.0-16.0); Lymphocyte % 29.7 %; Mean Corpuscular HGB Conc 34 g/dl (31-36); Mean Corpuscular Hemoglobin 30 pg (27-31); Mean Corpuscular Volume 89 fL (80-97); Mean Platelet Volume 9.5 fL (7.4-10.4); Nucleated Red Blood Cells % 0; Platelet Count 194 10^3/ul (150-450); Red Blood Count 5.18 10^6/ul (4.00-5.40); Red Cell Distribution Width 13 % (10.5-15); White Blood Count 5.8 10^3/ul (3.5-10.8)
--- NOTE | 2018-12-28 09:22 | ED ---
Respiratory - HPI Summary HPI Summary: Patient is a 43-year-old female with hx of vertebral artery dissection presenting after an episode of 8/10 RUQ pain at 6:15 this morning. Patient notes she was doing deep breathing exercises at the onset of pain. She describes the pain as sharp, originating from her diaphragm with radiation to the right shoulder/back. The pain lasted for approximately 1 minute and then subsided. She became anxious at the time and had shortness of breath. Denies left sided chest pain or diaphoresis. Patient has noted a cough the past few days, and flu-like symptoms last week. Denies N/V/D. On arrival to the ed, she notes mild pain in her shoulder as if she had been working out, but RUQ pain mostly resolved. Has a hx of asthma and several episodes of pneumonia, and gerd. mom has cardiac issues but is an ETOH. is not a control. no recent travel. no fam hx of blood clots. - History of Current Complaint Chief Complaint: EDChestPainROMI Stated Complaint: CHEST PAIN Time Seen by Provider: 12/28/18 08:46 Hx Obtained From: Patient Onset/Duration: Sudden Onset Timing: Intermittent Episodes Lasting: - 1 minute Initial Severity: Severe Current Severity: Mild Pain Intensity: 1 Aggravating Factor(s): Deep Breaths Alleviating Factor(s): Nothing - Allergy/Home Medications Allergies/Adverse Reactions: Allergies Allergy/AdvReac Type Severity Reaction Status Date / Time Iodinated Contrast- Oral and Allergy Intermediate See Comment Verified 12/28/18 08:49 IV Dye Penicillins Allergy Rash Verified 12/28/18 08:49 Home Medications: Home Medications Aspirin 81 mg CHEW TAB* [Aspirin Low Dose TAB*] 81 mg PO DAILY 12/28/18 [ History Confirmed 12/28/18] Cholecalciferol (Vitamin D3) [Natural Vitamin D-3] 5,000 unit PO DAILY 12/28/18 [History Confirmed 12/28/18] [place]cad[place]-3/Dha/Epa/Fish Oil [[place] 3 500 500 mg] 1 cap PO DAILY 12/28/18 [History Confirmed 12/28/18] PMH/Surg Hx/FS Hx/Imm Hx Endocrine/Hematology History: Denies: Hx Diabetes Cardiovascular History: Reports: Other Cardiovascular Problems/Disorders - Heart murmur as a child Denies: Hx Hypertension, Hx Pacemaker/ICD Respiratory History: Reports: Hx Asthma GI History: Reports: Hx Gastroesophageal Reflux Disease History: Denies: Hx Dialysis, Hx Renal Disease Sensory History: Denies: Hx Hearing Aid Neurological History: Reports: Hx Headaches, Other Neuro Impairments/Disorders - Hx vertebral artery dissection Psychiatric History: Denies: Hx Panic Disorder - Surgical History Surgery Procedure, Year, and Place: ,. tonsillectomy,. left foot surgery- removal extra bone. episiotomy,. laproscopy for endometriosis Infectious Disease History: No Infectious Disease History: Denies: Traveled Outside the [place] in Last 30 Days - Family History Known Family History: Positive: Other - Mother - EtOH abuse, HTN. Aunt on father 's side - stroke - Social History Alcohol Use: Weekly Hx Substance Use: No Substance Use Type: Reports: None Hx Tobacco Use: No Smoking Status (MU): Never Smoked Tobacco Review of Systems Negative: Fever, Chills, Fatigue, Skin Diaphoresis Eyes: Negative ENT: Negative Positive: Shortness Of Breath, Cough Negative: Abdominal Pain, Vomiting, Diarrhea, Nausea Genitourinary: Negative Negative: Arthralgia, Myalgia Skin: Negative Neurological: Negative All Other Systems Reviewed And Are Negative: Yes Physical Exam Triage Information Reviewed: Yes Vital Signs On Initial Exam: Initial Vitals Temp Pulse Resp BP Pulse Ox 97.3 F 98 18 142/92 99 12/28/18 08:34 12/28/18 08:34 12/28/18 08:34 12/28/18 08:34 12/28/18 08:34 Vital Signs Reviewed: Yes Appearance: Positive: Well-Appearing, No Pain Distress, Well-Nourished Skin: Positive: Warm, Dry Head/Face: Positive: Normal Head/Face Inspection Eyes: Positive: Normal, EOMI, NATHALIA ENT: Positive: Normal ENT inspection, Pharynx normal. Negative: Nasal congestion, Tonsillar swelling, Tonsillar exudate Neck: Positive: Supple, Nontender, No Lymphadenopathy Respiratory/Lung Sounds: Positive: Clear to Auscultation, Breath Sounds Present , Other - tenderness right lower ribs Cardiovascular: Positive: Normal, RRR. Negative: Murmur, Leg Edema Left, Leg Edema Right Abdomen Description: Positive: Nontender, No Organomegaly, Soft Bowel Sounds: Positive: Present Musculoskeletal: Positive: Normal, Strength/ROM Intact - arms, Other - good pulses Neurological: Positive: Normal, Sensory/Motor Intact, Alert, Oriented to Person Place, Time, CN Intact II-III Psychiatric: Positive: Normal, Affect/Mood Appropriate Diagnostics - Vital Signs Vital Signs Temp Pulse Resp BP Pulse Ox 12/28/18 08:34 97.3 F 98 18 142/92 99 - Laboratory Lab Results: Lab Results 12/28/18 Range/Units 09:05 WBC 5.8 (3.5-10.8) 10^3/ul RBC 5.18 (4.00-5.40) 10^6/ul Hgb 15.7 (12.0-16.0) g/dl Hct 46 (35-47) % MCV 89 (80-97) fL MCH 30 (27-31) pg MCHC 34 (31-36) g/dl RDW 13 (10.5-15) % Plt Count 194 (150-450) 10^3/ul MPV 9.5 (7.4-10.4) fL Neut % (Auto) 61.9 % Lymph % (Auto) 29.7 % [place] % (Auto) 7.3 % Eos % (Auto) 0.9 % Baso % (Auto) 0.2 % Absolute Neuts (auto) 3.6 (1.5-7.7) 10^3/ul Absolute Lymphs (auto) 1.7 (1.0-4.8) 10^3/ul Absolute Monos (auto) 0.4 (0-0.8) 10^3/ul Absolute Eos (auto) 0.1 (0-0.6) 10^3/ul Absolute Basos (auto) 0 (0-0.2) 10^3/ul Absolute Nucleated RBC 0 10^3/ul Nucleated RBC % 0 Result Diagrams: 12/28/18 09:05 12/28/18 09:05 Lab Statement: Any lab studies that have been ordered have been reviewed, and results considered in the medical decision making process. - Radiology chest Radiology Interpretation Completed By: Radiologist Summary of Radiographic Findings: IMPRESSION: No active cardiopulmonary disease is noted. - EKG No standard instances Cardiac Rate: NL EKG Rhythm: Sinus Rhythm ST Segment: Normal Summary of EKG Findings: sinus rhythm Disposition - Course Course Of Treatment: 43-year-old female presents with right sided chest pain today. States that she was taking deep breaths when felt sort of like a spasm type pain. She states radiates to right shoulder. she states that currently she has minimal pain. She denies any shortness breath. She denies any bowel pain. No nausea and vomiting. on exam minimal tenderness right ribs. ekg shows sinus rhythm. lungs CTA. wbc normal. troponin zero. d-dimer neg. chest xray normal. do not suspect gallbladder issues has had normal appetite and no sheth sign. has minimial cardiac risk factors with no personal hx of htn, dm, nonsmoker. discussed likely muscular. told to tynelol or ibuprofen. told to follow up with primary. patient understand and agrees with plan. - Differential Dx - Cardiopulmonary Differential Diagnoses - Cardiopulmonary: Lower Resp Infection, Pulmonary Embolism, Other - costrochronditis - Diagnoses Provider Diagnoses: Right-sided chest pain Discharge - Sign-Out/Discharge Documenting (check all that apply): Patient Departure Patient Received Moderate/Deep Sedation with Procedure: No - Discharge Plan Condition: Good Disposition: HOME Patient Education Materials: Noncardiac Chest Pain (ED) Referrals: Nevaeh Quinn MD [Primary Care Provider] - Additional Instructions: take tyenlol or ibuprofen every 6 hours as needed for pain follow up with primary Return to ED if develop any new or worsening symptoms - Billing Disposition and Condition Condition: GOOD Disposition: Home
[2018-12-28 09:39] LABS: ALT 13 U/L (7-52); AST 14 U/L (13-39); Albumin 4.6 g/dL (3.2-5.2); Albumin/Globulin Ratio 2.3 (1-3); Alkaline Phosphatase 63 U/L (34-104); Anion Gap 6 mmol/L (2-11); BUN/Creatinine Ratio 12.7 (8-20); Blood Urea Nitrogen 10 mg/dL (6-24); CO2 Carbon Dioxide 27 mmol/L (22-32); Calcium 9.7 mg/dL (8.6-10.3); Chloride 105 mmol/L (101-111); EGFR African American 95.2 (>60); EGFR Non-African American 78.7 (>60); Glucose 86 mg/dL (70-100); Potassium 4.2 mmol/L (3.5-5.0); Sodium 138 mmol/L (135-145); Total Protein 6.6 g/dL (6.4-8.9)
[2018-12-28 09:45] LABS: HCG Pregnancy < 0.60 mIU/mL
[2018-12-28 11:08] VITALS: BP 130/88
== END 2018-12-28 11:10 | disposition home or self-care (01) ==
LOC: ED 08:31
DX: R07.89 Other chest pain (principal); Z79.01 Long term (current) use of anticoagulants; Z88.0 Allergy status to penicillin; Z91.041 Radiographic dye allergy status; Z82.49 Family history of ischemic heart disease and other diseases of the circulatory system; Z82.3 Family history of stroke
CPT/HCPCS: 36415; 71046; 80053; 83605; 83880; 84484; 84702; 85025; 85379; 93005; 99282

== ENCOUNTER 2020-01-14 11:37 | Emergency (ER) | payer OTHER ==
--- OUTSIDE RECORDS SUMMARY | 2020-01-14 11:41 | XMS REPORT | Continuity of Care Document ---
:1975 External Reference #:[id number] Author Name Shelly Ballard M.D. (transmitted by agent of provider Sherly [place]) Address [address] [place] [address] Care Team Providers Name Role Phone Nevaeh Quinn MD - Internal Care Team Information Outpatient Facility Physical Therapist [phone] Medicine Problems Active Problems Provider Date Localized, primary osteoarthritis of the Shelly Ballard M.D. Onset: 12/11/2019 pelvic region and thigh Abnormal involuntary movement Amado Fleming M.D. Onset: 03/31/2018 Collagen deficiency syndrome Amado Fleming M.D. Onset: 09/27/2017 Vertebral artery occlusion Amado Fleming M.D. Onset: 09/27/2017 Dissection of vertebral artery Amado Fleming M.D. Onset: 09/27/2017 Social History Type Date Description Comments Sex Unknown ETOH Use Drinks 2 Alcoholic Beverages Per Week Tobacco Use Start: Unknown Patient has never smoked Recreational Drug Use Denies Drug Use Smoking Status Reviewed: 12/11/19 Patient has never smoked Exercise Type/Frequency Exercises regularly Allergies, Adverse Reactions, Alerts Active Allergies Reaction Severity Comments Date Penicillin 09/27/2017 FD&C Red 40 Mcg[place]is Burning, tight,painful-Chest CT dye only 2018 Medications Active Medications SIG Qnty Indications Ordering Provider Date Vitamin D3 Super 1 by mouth every 90tabs Other Ordering 09/29/2019 Strength day Provider 50mcg (2000 Ut) Tablets Mandibular Please fabricate 1units G47.33 Jessica 09/29/2019 Advancement Device mandibular JAENT Durham advancement device Device for mild sleep apnea Benadryl Allergy 1/2-1 daily 2caps Amado Fleming 09/27/2017 Trip 25mg Capsules Omeprazole 1 by mouth every Unknown 20mg day Capsules Bupropion HCL ER 1 by mouth every Unknown (SR) day 150mg Tablets ER 12HR [place] 3 1 tab by mouth Unknown 500mg every day Capsules Potassium Aspatate Unknown /Calcium Calcium 500+D High 1 tab po qd Unknown Potency [id number] Tablets Aspirin 81 1 by mouth every Unknown 81mg day Tablets DR Rogers HFA Inhale 2 Puffs By Unknown Mouth Twice A Day 110mcg/Act Aerosol Medications Administered in Office Medication SIG Qnty Indications Ordering Provider Date Depomedrol 40MG Shelly Ballard M.D. 12/11/2019 Injection Immunizations Description No Information Available Vital Signs Date Vital Result Comment 12/11/2019 9:19am Height 65 inches 5'5" Weight 135.00 lb Heart Rate 89 /min BP Systolic 134 mmHg BP Diastolic 70 mmHg Respiratory Rate 18 /min Body Temperature 97.9 F Pain Level 7 BMI (Body Mass Index) 22.5 kg/m2 09/29/2019 8:54am Height 65 inches 5'5" Weight 136.00 lb Heart Rate 100 /min BP Systolic 130 mmHg BP Diastolic 78 mmHg O2 % BldC Oximetry 99 % BMI (Body Mass Index) 22.6 kg/m2 Results Test Acquired Facility Test Result H/L Range Note Date Xray 12/11/2019 [facility] Inj/Aspir Major JT <pending> Or Bursa W/ US Laboratory 07/07/2019 [facility] Alpha 1 Antitrypsin 114 mg/dL 100 - 190 1 test finding [address] [place] [address] [phone] Anca Panel For 07/07/2019 [facility] Myeloperoxidase AB < 0.2 U [address] [place] [address] [phone] Proteinase 3 AB < 0.2 U 3 CBC Auto 07/07/2019 [facility] White Blood 6.1 10^3/uL Normal 3.5-10.[address] [place] [address] [phone] Red Blood Count 5.18 10^6/uL High 3.70-4.87 Hemoglobin 16.0 g/dL Normal 12.0-16.0 Hematocrit 47 % Normal 35-47 Mean Corpuscular Volume 91 fL Normal 80-97 Mean Corpuscular Hemoglobin 31 pg Normal 27-31 Mean Corpuscular HGB Conc 34 g/dL Normal 31-36 Red Cell Distribution Width 13 % Normal 10-15 Platelet Count 191 10^3/uL Normal 150-450 Mean Platelet Volume 10.2 fL Normal 7.4-10.4 Abs Neutrophils 3.8 10^3/uL Normal 1.5-7.7 Abs Lymphocytes 1.8 10^3/uL Normal 1.0-4.8 Abs Monocytes 0.5 10^3/uL Normal 0-0.8 Abs Eosinophils 0.0 10^3/uL Normal 0-0.6 Abs Basophils 0.1 10^3/uL Normal 0-0.2 Abs Nucleated RBC 0.0 10^3/uL Granulocyte % 61.0 % Lymphocyte % 29.6 % Monocyte % 7.7 % Eosinophil % 0.6 % Basophil % 1.1 % Nucleated Red Blood Cells % 0.1 Igg Subclasses 07/07/2019 [facility] Total IgG 625 mg/dL Abnormal 767 - [address] [place] [address] [phone] Immunoglobulin G1 395 mg/dL 341 - 894 Immunoglobulin G2 122 mg/dL Abnormal 171 - 632 Immunoglobulin G3 19.7 mg/dL 4 Immunoglobulin G4 9.6 mg/dL 5 Laboratory test 07/07/2019 [facility] Immunoglobulin E 3.6 kU/L <= [address] (Ige) [place] [address] [phone] Immunoglobulin A (Iga) 71 mg/dL 61 - 356 7 Rheumatoid Factor < 10 IU/mL Normal <15 Nuclear AB (Daniela) By Ifa Igg <1:80 (Negative) 8 C Reactive Protein < 1.00 mg/L Normal <8.01 1 Test Performed by: [facility] [address] [facility], [place] [address] 2 REFERENCE VALUE <0.4 (Negative) 3 REFERENCE VALUE <0.4 (Negative) Test Performed by: [facility] [place] [address] 4 REFERENCE VALUE 18.4 - 106.0 5 REFERENCE VALUE 2.4 - 121.0 Test Performed by: [facility] [place] [address] 6 Test Performed by: [facility] [place] [address] 7 Test Performed by: [facility] [place] [address] 8 <1:80 (Negative) REFERENCE VALUE <1:80 (Negative) Test Performed by: [facility] [place] [address] Procedures Date Code Description Status 12/11/2019 50326 Inj/Aspir Major JT Or Bursa W/ US Completed 09/25/2019 41695 Polysomnography Sleep Staging 4+ Parameters Completed 07/27/2019 56815 Diffusing Capacity Completed 07/27/2019 05769 Diffusing Capacity Completed 07/27/2019 90403 Plethysmography Determination Lung Volumes & Per Airway Completed Resist 07/27/2019 40960 Plethysmography Determination Lung Volumes & Per Airway Completed Resist 07/27/2019 36717 Pulmonary Function><Bronchodil Completed 07/27/2019 19395 Pulmonary Function><Bronchodil Completed 07/03/2019 13714 Sleep Study Unattended,HRT Rate,Oxygen Sat,Resp Completed Effort/Airflow Medical Devices Description No Information Available Encounters Type Date Location Provider Dx Diagnosis Office Visit 09/29/2019 Pulmonology Chente Li.909 Unspecified asthma, 9:00a [facility] uncomplicated Crowning Inspector G47.33 Obstructive sleep apnea (adult) (pediatric) Office Visit 08/04/2019 Pulmonology And Eula Li.909 Unspecified asthma , 10:45a [facility] uncomplicated Crowning Inspector 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 12/11/2019 M16.12 Unilateral primary osteoarthritis, left hip Shelly Ballard M.D. 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 at [facility] [place]/29/2020 9:00 am - Jessica [facility] NP at [facility]12/11/2019 - Shelly Ballard M.D.M25.552 Pain in left hipFollow up:Follow up: 2 zxysjY58.12 Unilateral primary osteoarthritis, left hip Functional Status Description No Information Available Mental Status Description No Information Available Referrals Refer to Reason for Referral Status Appt Date Amado Rubio MD Closed [address] [facility] [place] [address] [place] [address] [phone]
--- OUTSIDE RECORDS SUMMARY | 2020-01-14 11:41 | XMS REPORT | Continuity of Care Document ---
:1975 External Reference #:[id number] Author Name EUFEMIA Freitas (transmitted by agent of provider Amado Rubio) Address [address] [place] [id number] Care Team Providers Name Role Phone Eula Martinez MD - Pulmonary Care Team Information Weave Defect Charting Clerk [phone] Disease Nevaeh Quinn MD - Family Medicine Care Team Information Weave Defect Charting Clerk Problems Active Problems Provider Date Common variable agammaglobulinemia Amado Rubio MD Onset: 08/30/2019 Uncomplicated moderate persistent EUFEMIA Freitas Onset: 2019 asthma Social History Type Date Description Comments Sex Unknown Tobacco Use Start: Unknown Patient has never smoked Smoking Status Reviewed: 12/18/19 Patient has never smoked Allergies, Adverse Reactions, Alerts Active Allergies Reaction Severity Comments Date Penicillin 08/30/2019 Singulair 08/30/2019 Narcotics 08/30/2019 Quinolones 08/30/2019 Medications Active Medications SIG Qnty Indications Ordering Provider Date Breo Ellipta inhale one puff 28units J45.40 Amado Denson 12/18/2019 once a day. MD [facility] 200-25mcg/Inh Aerosol rinse mouth after use. Bupropion Take 1 Tablet Unknown Hydrochloride ER (XL) By Mouth Once Daily 150mg Tablets ER 24HR Omeprazole TK One C PO D Unknown 20mg prn Capsules DR Flovent HFA Unknown 110mcg/Act Aerosol Alprazolam take 1/2 to 1 Unknown 0.25mg tablet by mouth Tablets four times a day Proair HFA inhale 2 puffs Unknown 108(90Base) by mouth every mcg/Act Aerosol 4 to 6 hours if needed for cough / wheezing Methocarbamol TK 1 To 2 TS PO Unknown 500mg Up To qid Tablets Immunizations CPT Code Status Date Vaccine Lot # [id number] Given 08/30/2019 Pneumococcal Vaccine 2Yrs Or Older [id number] Vital Signs Date Vital Result Comment 12/18/2019 8:41am BP Systolic 132 mmHg BP Diastolic 80 mmHg Height 65 inches 5'5" Weight 138.00 lb BMI (Body Mass Index) 23.0 kg/m2 Heart Rate 75 /min Respiratory Rate 16 /min Body Temperature 97.6 F O2 % BldC Oximetry 99 % 10/11/2019 10:23am BP Systolic 138 mmHg BP Diastolic 67 mmHg Height 65 inches 5'5" Weight 138.00 lb BMI (Body Mass Index) 23.0 kg/m2 Heart Rate 78 /min Respiratory Rate 16 /min O2 % BldC Oximetry 98 % Results Test Acquired Date Facility Test Result H/L Range Note Order 12/18/2019 [facility] Nitric Oxide <pending> PFT Supplies <pending> PFT With Bronchodilator <pending> Laboratory test finding 08/30/2019 [facility] Order < pending> Laboratory test finding 08/30/2019 [facility] Order < pending> Procedures Date Code Description Status 12/18/2019 72100 Nitric Oxide Gas Determination Completed 12/18/2019 20820 Bronchodilation Responsiveness Spirometry Pre/Post Completed Bronchodil Adm Medical Devices Description No Information Available Encounters Type Date Location Provider Dx Diagnosis Office Visit 12/18/2019 Kristine Ferrara J45.40 Moderate persistent 8:30a Fenst[facility], asthma, uncomplicated RPA-C 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 Fenstermacher, RPA-C immunodeficiencies 10/11/2019 D83.8 Other common variable VICTOR MANUEL Thompson immunodeficiencies 08/30/2019 D83.8 Other common variable Amado Rubio MD immunodeficiencies Plan of Treatment 12/18/2019 - Mare Velasquez, RPA-CJ45.40 Moderate persistent asthma, uncomplicatedNew Medication:Breo Ellipta 200-25 mcg/Inh - inhale one puff once a day. rinse mouth after use.Comments:Patient with persistent post viral cough. Today's PFT is within normal limits. NIOX is also normal at 13ppb. I will give Breo for increased daily prophylaxis of the chest. Continue ProAir as needed forbreakthrough symptoms. I will re-evaluate in 2-3 weeks.Follow up:2-3 ekkdhB75.8 Other common variable immunodeficienciesComments:Appeal is in process for Tepha. Patient to contact the office if she develops any subsequent infections. Functional Status Description No Information Available Mental Status Description No Information Available Referrals Description No Information Available
--- NOTE | 2020-01-14 11:58 | UC ---
FLU HPI - HPI Summary HPI Summary: 44 yo female presents with cough. She tells me that last week she had the flu and was treated with tamiflu and was feeling better for 2 days. Yesterday she developed wheezing and a dry cough. She tells me that she has a hx of an autoimmune def that causes her to get PNA and bronchitis often -- her pig caster has advised her to be treated at the first onset of symptoms. She denies fever, chills, sore throat, SOB, chest pain, abdominal pain, n/v. She does not smoke. Was recently started on breo and states that this helps her breathing a lot, but has noticed that it's raising her BP. - History of Current Complaint Chief Complaint: UCGeneralIllness Stated Complaint: RESP COMPLAINT Time Seen by Provider: 01/14/20 11:58 Hx Obtained From: Patient Hx Last Menstrual Period: no periods Onset/Duration: Sudden Onset Severity Currently: Mild Severity Initially: Mild Pain Intensity: 3 Pain Scale Used: 0-10 Numeric - Allergy/Home Medications Allergies/Adverse Reactions: Allergies Allergy/AdvReac Type Severity Reaction Status Date / Time Iodinated Contrast Media Allergy Intermediate See Comment Verified 01/14/20 11: 46 [Iodinated Contrast- Oral and IV Dye] Penicillins Allergy Rash Verified 01/14/20 11:46 codeine AdvReac Vomiting Verified 01/14/20 11:46 Home Medications: Home Medications Bupropion XL* [Wellbutrin XL *] 150 mg PO DAILY 08/31/17 [History Confirmed ] Omeprazole CAP (NF) [Prilosec CAP* 20 MG] 20 mg PO DAILY 08/31/17 [History Confirmed 01/14/20] Aspirin 81 mg CHEW TAB* [Aspirin Low Dose TAB*] 81 mg PO DAILY 12/28/18 [ History Confirmed 01/14/20] Cholecalciferol (Vitamin D3) [Natural Vitamin D-3] 5,000 unit PO DAILY 12/28/18 [History Confirmed 01/14/20] [place]-3/Dha/Epa/Fish Oil [[place] 3 500 500 mg] 1 cap PO DAILY 12/28/18 [History Confirmed 01/14/20] DOXYcycline CAP(*) [DOXYcycline 100MG CAP(*)] 100 mg PO BID #14 cap 01/14/20 [Rx ] Fluticasone/Vilanterol MDI(NF) [Breo Ellipta MDI 200/25(NF)] 1 puff INH DAILY [History Confirmed 01/14/20] PMH/Surg Hx/FS Hx/Imm Hx GI/ History: Gastroesophageal Reflux - Surgical History Surgical History: Yes Surgery Procedure, Year, and Place: ,. tonsillectomy,. left foot surgery- removal extra bone. episiotomy,. laproscopy for endometriosis - Family History Known Family History: Positive: Other - Mother - EtOH abuse, HTN. Aunt on father 's side - stroke - Social History Lives: With Family Alcohol Use: Rare Substance Use Type: None Smoking Status (MU): Never Smoked Tobacco Review of Systems All Other Systems Reviewed And Are Negative: No Constitutional: Positive: Negative Skin: Positive: Negative Eyes: Positive: Negative ENT: Positive: Negative Respiratory: Positive: Cough Cardiovascular: Positive: Negative Gastrointestinal: Positive: Negative Neurological/Mental Status: Positive: Negative Psychological: Positive: Negative Physical Exam - Summary Physical Exam Summary: GENERAL: NAD. WDWN. No pain distress. SKIN: No rashes, sores, lesions, or open wounds. HEENT: Head: AT/NC Eyes: EOM intact. Conjunctiva clear without inflammation or discharge. Ears: Hearing grossly normal. TMs intact, no bulging, erythema, or edema. Nose: Nasal mucosa pink and moist. NTTP maxillary and frontal sinus. Throat: Posterior oropharynx without exudates, erythema, or tonsillar enlargement. Uvula midline. NECK: Supple. Nontender. No lymphadenopathy. CHEST: CTAB. No r/r/w. No accessory muscle use. Breathing comfortably and in no distress. CV: RRR. Pulses intact. Cap refill <2seconds NEURO: Alert. PSYCH: Age appropriate behavior. Triage Information Reviewed: Yes Vital Signs: Initial Vital Signs Temp 99.6 F 01/14/20 11:48 Pulse 90 01/14/20 11:48 Resp 16 01/14/20 11:48 BP 154/101 01/14/20 11:48 Pulse Ox 99 01/14/20 11:48 Vital Signs: Temp Pulse Resp BP Pulse Ox 99.6 F 90 16 138/86 99 01/14/20 11:48 01/14/20 11:48 01/14/20 11:48 01/14/20 12:50 01/14/20 11:48 Vital Signs Reviewed: Yes Diagnostics - Radiology CXR Radiology Interpretation Completed By: Radiologist Summary of Radiographic Findings: IMPRESSION: NO ACTIVE CARDIOPULMONARY DISEASE. Flu Course/Dx - Course Course Of Treatment: CXR as above. Recheck BP 138/86. Suspect viral illness, but given immunocompromised status will treat with anbx at this time. - Differential Dx/Diagnosis Provider Diagnosis: Bronchitis Discharge ED - Sign-Out/Discharge Documenting (check all that apply): Patient Departure All imaging exams completed and their final reports reviewed: Yes - Discharge Plan Condition: Stable Disposition: HOME Prescriptions: DOXYcycline CAP(*) [DOXYcycline 100MG CAP(*)] 100 mg PO BID #14 cap Patient Education Materials: Acute Bronchitis (ED) Referrals: Nevaeh Quinn MD [Primary Care Provider] - Additional Instructions: Your chest x-ray was normal today, but given your disease history; you are being treated with antibiotics. If you develop a fever, shortness of breath, chest pain, new or worsening symptoms - please call your PCP or go to the ED immediately. Your blood pressure was high at todays visit. Please see your primary provider within 4 weeks for recheck and re-evaluation. - Billing Disposition and Condition Condition: STABLE Disposition: Home
[2020-01-14 12:51] VITALS: BP 138/86
== END 2020-01-14 12:57 | disposition home or self-care (01) ==
LOC: UCEAST 11:37
DX: J40 Bronchitis, not specified as acute or chronic (principal); K21.9 Gastro-esophageal reflux disease without esophagitis; Z79.899 Other long term (current) drug therapy; Z88.0 Allergy status to penicillin; Z88.5 Allergy status to narcotic agent; Z91.09 Other allergy status, other than to drugs and biological substances
CPT/HCPCS: 71046; 99212; G0463